=== PATIENT | female | born 1945 | race Caucasian/White ===

== ENCOUNTER 2021-02-22 06:43 | Inpatient (IN) | payer OTHER, BC ==
[2021-02-21 18:02] VITALS: BMI 26.2
[2021-02-22] MEDS ORDERED: CEFAZOLIN 2 GM/D5W 2 GM/50 ML ML IVPB ONE (07:55)
[2021-02-22] MEDS ORDERED: TRANEXAMIC ACID 1000 MG/10 ML VIAL IVPUSH ONE (07:55)
[2021-02-22] MEDS: CELECOXIB 200 MG CAPSULE PO ONE (08:06)
[2021-02-22] MEDS ORDERED: BUPIVACAINE LIPOSOME/PF (EXPAREL) 266 MG/20 ML VIAL ONE (08:17)
[2021-02-22] MEDS ORDERED: MIDAZOLAM HCL 2 MG/2 ML SINGLE DOSE VIAL ONE (08:17)
[2021-02-22] MEDS ORDERED: BUPIVACAINE HCL/PF 0.5% (5MG/ML) 10 ML VIAL ONE ×2 (08:17→09:22)
[2021-02-22] MEDS ORDERED: SODIUM CHLORIDE 0.9% P/F 10 ML VIAL IJ ONE (08:18)
[2021-02-22] MEDS ORDERED: ceFAZolin SODIUM 1 GM VIAL ONE ×3 (08:58→17:27)
[2021-02-22] MEDS ORDERED: VANCOMYCIN 1,000 MG VIAL (RESTRICTED TO ID ONLY) ONE (08:58)
[2021-02-22] MEDS ORDERED: ACETAMINOPHEN 1000 MG/100 ML VIAL IVPB ONE (09:03)
[2021-02-22] MEDS ORDERED: ONDANSETRON 4 MG/2 ML VIAL IVPUSH PRN ×2 (09:03→12:04)
[2021-02-22] MEDS ORDERED: oxyCODONE HCL 5 MG TABLET PO PRN ×2 (09:03)
[2021-02-22] MEDS ORDERED: PROPOFOL 20 ML ONE ×2 (10:03→10:57)
[2021-02-22] MEDS ORDERED: DEXAMETHASONE SOD PHOSPHATE 4 MG/1 ML VIAL ONE (10:14)
[2021-02-22] MEDS ORDERED: TRANEXAMIC ACID 1000 MG/10 ML VIAL ONE (10:14)
[2021-02-22] MEDS ORDERED: VANCOMYCIN 1,000 MG VIAL (RESTRICTED TO ID ONLY) IVPB ONE (11:34)
[2021-02-22] MEDS ORDERED: amLODIPine BESYLATE 5 MG TABLET (FP) PO PRN (12:02)
[2021-02-22] MEDS ORDERED: ALPRAZolam 0.25 MG TABLET PO PRN (12:02)
[2021-02-22] MEDS ORDERED: LISINOPRIL 20 MG TABLET PO PRN (12:02)
[2021-02-22] MEDS ORDERED: MAG HYDROX/AL HYDROX/SIMETH 30 ML UNIT-DOSE CUP PO PRN (12:04)
[2021-02-22] MEDS ORDERED: MAGNESIUM HYDROX 2400MG/30ML ORAL SUSPENSION 30 ML CUP PO PRN (12:04)
[2021-02-22] MEDS ORDERED: ACETAMINOPHEN INJECTION 100 ML IVPB ONE (12:09)
[2021-02-22] MEDS ORDERED: KETOROLAC TROMETHAMINE 30 MG/1 ML VIAL ONE (12:09)
[2021-02-22] MEDS ORDERED: LACTATED RINGERS SOLUTION 1,000 ML IV SCH (12:15)
[2021-02-22] MEDS: KETOROLAC TROMETHAMINE 30 MG/1 ML VIAL IVPUSH SCH ×2 (12:30→15:36)
[2021-02-22] MEDS ORDERED: AMIODARONE HCL 200 MG TABLET PO SCH (16:00)
[2021-02-22] MEDS ORDERED: DEXTROSE 5%-WATER - 50 ML IVPB ONE (17:28)
[2021-02-22] MEDS: LACTATED RINGERS SOLUTION 1,000 ML IV SCH (17:42)
[2021-02-22] MEDS ORDERED: SERTRALINE HCL 25 MG TABLET (FP) PO SCH (22:00)
[2021-02-22] MEDS: oxyCODONE HCL 10 MG SUSTAINED ACTING TABLET PO SCH ×2 (22:20→22:51)
[2021-02-22] MEDS: ATORVASTATIN CA 10 MG TABLET (FP) PO SCH (22:21)
[2021-02-22] MEDS: EZETIMIBE 10 MG TABLET (FP) PO SCH (22:21)
[2021-02-22] MEDS: ALPRAZolam 0.25 MG TABLET PO SCH (22:22)
[2021-02-22] MEDS: SENNOSIDES/DOCUSATE COMBO (SENNA PLUS) TABLET (UD) PO SCH (22:53)
[2021-02-23] MEDS ORDERED: ceFAZolin SODIUM 1 GM VIAL ONE (01:49)
[2021-02-23] MEDS ORDERED: DEXTROSE 5%-WATER - 50 ML IVPB ONE (01:49)
[2021-02-23] MEDS: CEFAZOLIN 2 GM in DEXTROSE 5%-WATER - 50 ML IVPB SCH (03:13)
[2021-02-23] MEDS: metoPROLOL SUCCINATE 25 MG TAB.SR.24H (FP) PO SCH (09:28)
[2021-02-23] MEDS: APIXABAN 5 MG TABLET PO SCH ×2 (09:30→21:43)
[2021-02-23] MEDS: PANTOPRAZOLE 40 MG TABLET PO SCH (09:30)
[2021-02-23] MEDS: SENNOSIDES/DOCUSATE COMBO (SENNA PLUS) TABLET (UD) PO SCH ×2 (09:31→21:44)
[2021-02-23] MEDS: MULTIVITAMINS (DAILY MVI) TABLET (FP) PO SCH (09:32)
[2021-02-23] MEDS: oxyCODONE HCL 10 MG SUSTAINED ACTING TABLET PO SCH ×2 (09:32→22:37)
[2021-02-23 09:54] LABS: HEMATOCRIT 31.8 % (32.4-45.2); MCH 31.6 pg (25.7-33.7); MCHC 34.6 g/dl (32.0-36.0); MEAN CELL VOLUME 91.5 fl (80-96); MEAN PLT VOLUME 9.9 fl (7.5-11.1); PLATELET COUNT 216 10^3/uL (134-434); RBC 3.47 M/mm3 (3.60-5.2); RDW 13.8 % (11.6-15.6); WHITE BLOOD COUNT 10.4 K/mm3 (4.0-10.0)
[2021-02-23] MEDS: AMIODARONE HCL 200 MG TABLET PO SCH (15:52)
[2021-02-23] MEDS ORDERED: SERTRALINE HCL 50 MG TABLET (FP) ONE (20:49)
[2021-02-23] MEDS ORDERED: SERTRALINE HCL 25 MG TABLET (FP) ONE (20:49)
[2021-02-23] MEDS: SERTRALINE HCL 50 MG, SERTRALINE HCL 25 MG PO SCH (20:59)
[2021-02-23] MEDS: EZETIMIBE 10 MG TABLET (FP) PO SCH (22:37)
[2021-02-23] MEDS: ALPRAZolam 0.25 MG TABLET PO SCH (22:37)
[2021-02-23] MEDS: ATORVASTATIN CA 10 MG TABLET (FP) PO SCH (22:37)
[2021-02-24] MEDS ORDERED: BISACODYL 5 MG TABLET.DR (FP) PO ONE (03:21)
[2021-02-24] MEDS ORDERED: ACETAMINOPHEN 325 MG TABLET (FP) PO PRN (03:23)
[2021-02-24] MEDS ORDERED: ACETAMINOPHEN 500 MG TABLET (FP) PO ONE (03:25)
[2021-02-24] MEDS: CELECOXIB 200 MG CAPSULE PO ONE (08:32)
[2021-02-24] MEDS: CEFAZOLIN 2 GM in DEXTROSE 5%-WATER - 50 ML IVPB SCH (08:34)
[2021-02-24] MEDS: LACTATED RINGERS SOLUTION 1,000 ML IV SCH ×2 (08:34→09:10)
[2021-02-24] MEDS: SIMETHICONE 250 MG PO SCH ×2 (08:45→08:46)
[2021-02-24] MEDS: PANTOPRAZOLE 40 MG TABLET PO SCH (09:06)
[2021-02-24] MEDS: APIXABAN 5 MG TABLET PO SCH ×2 (09:06→22:05)
[2021-02-24] MEDS: metoPROLOL SUCCINATE 25 MG TAB.SR.24H (FP) PO SCH (09:06)
[2021-02-24] MEDS: oxyCODONE HCL 10 MG SUSTAINED ACTING TABLET PO SCH ×2 (09:09→22:05)
[2021-02-24] MEDS: SENNOSIDES/DOCUSATE COMBO (SENNA PLUS) TABLET (UD) PO SCH ×2 (09:09→22:06)
[2021-02-24] MEDS: MULTIVITAMINS (DAILY MVI) TABLET (FP) PO SCH (09:10)
[2021-02-24 09:57] LABS: HEMATOCRIT 29.8 % (32.4-45.2); HEMOGLOBIN 10.3 GM/dL (10.7-15.3); MCH 31.6 pg (25.7-33.7); MCHC 34.7 g/dl (32.0-36.0); MEAN CELL VOLUME 91.2 fl (80-96); PLATELET COUNT 214 10^3/uL (134-434); RBC 3.27 M/mm3 (3.60-5.2); RDW 14.2 % (11.6-15.6); WHITE BLOOD COUNT 10.1 K/mm3 (4.0-10.0)
[2021-02-24] MEDS ORDERED: ACETAMINOPHEN 1000 MG/100 ML VIAL IVPB PRN (11:56)
[2021-02-24] MEDS: SIMETHICONE 80 MG TAB.CHEW (FP) PO SCH ×2 (13:24→18:14)
[2021-02-24] MEDS: AMIODARONE HCL 200 MG TABLET PO SCH (16:24)
[2021-02-24] MEDS ORDERED: SERTRALINE HCL 25 MG TABLET (FP) ONE (21:02)
[2021-02-24] MEDS ORDERED: SERTRALINE HCL 50 MG TABLET (FP) ONE (21:02)
[2021-02-24] MEDS: SERTRALINE HCL 50 MG, SERTRALINE HCL 25 MG PO SCH (21:05)
[2021-02-24] MEDS: EZETIMIBE 10 MG TABLET (FP) PO SCH (22:05)
[2021-02-24] MEDS: ATORVASTATIN CA 10 MG TABLET (FP) PO SCH (22:05)
[2021-02-24] MEDS: ALPRAZolam 0.25 MG TABLET PO SCH (22:06)
[2021-02-25] MEDS: ALPRAZolam 0.25 MG TABLET PO SCH ×2 (00:46→02:46)
[2021-02-25] MEDS ORDERED: ACETAMINOPHEN 500 MG TABLET (FP) PO PRN (08:09)
[2021-02-25] MEDS: SIMETHICONE 80 MG TAB.CHEW (FP) PO SCH ×2 (08:22→11:39)
[2021-02-25] MEDS: LACTATED RINGERS SOLUTION 1,000 ML IV SCH (09:57)
[2021-02-25] MEDS: PANTOPRAZOLE 40 MG TABLET PO SCH (09:57)
[2021-02-25] MEDS: metoPROLOL SUCCINATE 25 MG TAB.SR.24H (FP) PO SCH (09:57)
[2021-02-25] MEDS: SENNOSIDES/DOCUSATE COMBO (SENNA PLUS) TABLET (UD) PO SCH (09:57)
[2021-02-25] MEDS: APIXABAN 5 MG TABLET PO SCH (09:57)
[2021-02-25] MEDS: MULTIVITAMINS (DAILY MVI) TABLET (FP) PO SCH (09:59)
[2021-02-25] MEDS ORDERED: traMADol HCL 50 MG TABLET PO ONE (11:30)
[2021-02-25 12:55] VITALS: BP 125/57; PULSE 73; TEMP 98.9
== END 2021-02-25 12:50 | disposition home health service (06) | DRG 470 ==
LOC: FM/S 06:43
PROVIDERS: ADMIT Orthopaedic Surgery; ATTEND Orthopaedic Surgery
PROC: 8E0Y0CZ Robotic Assisted Procedure of Lower Extremity, Open Approach (ICD-10-PCS; 2021-02-22)
PROC: 0SRD0J9 Replacement of Left Knee Joint with Synthetic Substitute, Cemented, Open Approach (ICD-10-PCS; principal; 2021-02-22 10:20)
DX: M17.12 Unilateral primary osteoarthritis, left knee (principal); I48.91 Unspecified atrial fibrillation; I10 Essential (primary) hypertension; E78.5 Hyperlipidemia, unspecified
CPT/HCPCS: 36415; 73560-TC-LT-FY; 85027; 94760; 97010-GP; 97116-GP; 97163-GP; C9803; J0131; U0003; U0005